=== PATIENT | male | born 1990 | race Caucasian/White ===

== ENCOUNTER 2019-03-06 14:28 | Emergency (ER) | payer BC, OTHER ==
--- NOTE | 2019-03-06 15:31 | EDPHY ---
H & P Time Seen by Provider: 03/06/19 15:09 HPI/ROS: CHIEF COMPLAINT: "I'm detoxing" HISTORY OF PRESENT ILLNESS: 28-year-old male history of frequent alcohol abuse notes binge alcohol drinking for the past 1 week, last drink of alcohol last night, drove to the ER complaining of feeling tremulous, nausea, anxiety. Denies suicidal ideation. Denies hallucination. Denies seizure. PRIMARY CARE PROVIDER: REVIEW OF SYSTEMS: 10 systems reviewed and negative with the exception of the elements mentioned in the history of present illness PAST MEDICAL & SURGICAL HISTORY: No pertinent medical or surgical history SOCIAL HISTORY: Positive for heavy daily alcohol abuse PHYSICAL EXAM (Prior to examination, patient consented to physical exam, hands were washed and my usual and customary physical exam procedures followed) 1) GENERAL: Well-developed, well-nourished, alert and oriented. Appears anxious. Tremulous. 2) HEAD: Normocephalic, atraumatic 3) HEENT: Pupils equal, round, reactive to light bilaterally. Sclera anicteric. No signs of trauma. 4) NECK: Full range of motion, no meningeal signs. 5) LUNGS: Clear auscultation bilaterally, no wheezes, no rhonchi, no retractions. 6) HEART: Regular rate and rhythm, no murmur, no heave, no gallop. 7) ABDOMEN: No guarding, no rebound, no focal tenderness, negative McBurney's, negative Lopez's, negative Rovsing's, negative peritoneal sign, 8) MUSCULOSKELETAL: Moving all extremities, no focal areas of tenderness, no obvious trauma. No peripheral edema or discoloration. 9) BACK: No CVA tenderness, no midline vertebral tenderness, no fluctuance, no step-off, no obvious trauma, no visual or palpable abnormality. 10) SKIN: No rash, no petechiae. 11) Psychiatric: Patient is oriented X 3, there is no agitation. DIFFERENTIAL DIAGNOSIS: In no particular order including but not limited to acute alcohol withdrawal, delirium tremens, alcoholic hallucinosis Smoking Status: Former smoker Constitutional: Initial Vital Signs Temperature (C) 37.1 C 03/06/19 14:41 Heart Rate 85 03/06/19 14:41 Respiratory Rate 18 03/06/19 14:41 Blood Pressure 128/90 H 03/06/19 14:41 O2 Sat (%) 97 03/06/19 14:41 O2 Delivery Mode Room Air Allergies/Adverse Reactions: No Known Allergies Allergy (Verified 03/06/19 14:41) Home Medications: Medication Instructions Recorded NK [No Known Home Meds] 08/22/14 MDM/Departure - MDM ED Course/Re-evaluation: 3:30 p.m.: Patient has a CIWA score of 3 at this time. Informed the patient that I do not feel is appropriate to provide a prescription for Librium and have him detox on his own at home by himself. [facility] He would like to speak to the business case analyst. 3:57 p.m.: life enrichment manager has had a lengthy discussion with the patient and discussed options. He is not interested in inpatient rehabilitation, is not interested in going [facility], at this time. He does request a single benzodiazepine dose which is given to him, a condition that he has agreed to leave his car here and take a taxi home. He has been given resources for outpatient and feels comfortable being discharged. He does not meet criteria for an M1 hold. Care of patient under supervision of secondary supervising physician Dr Rodríguez Gonsalez. - Depart Disposition: Home, Routine, Self-Care Clinical Impression: Alcohol withdrawal Qualifiers: Complication of substance-induced condition: uncomplicated Qualified Code(s): F10.230 - Alcohol dependence with withdrawal, uncomplicated Condition: Good Instructions: Alcohol Withdrawal (ED) Additional Instructions: Seek immediate medical attention if you develop hallucinations, if you develop seizure. Stopping alcohol suddenly can be deadly. Referrals: [facility] [Other] - 1-2 days without fail
[2019-03-06] MEDS ORDERED: LORazepam 1 MG TAB PO ONE (15:55)
[2019-03-06 16:47] VITALS: BP 155/97
--- NOTE | 2019-03-06 17:40 | ASMTCMCOM ---
CM Note CM Note Notes: This CM met with patient to discuss resources for ETOH withdrawal and recovery. 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 He is currently experiencing mild tremors and nausea but is able to eat and take fluids without issue. When asked, patient tells me that he presented to [facility] a few months ago with similar symptoms, was evaluated at [facility], but decided to not admit to detox. When discussed today he tells me that he would prefer to go home with resources but does not want to go to detox, in part because he has [facility] a R wrist fracture he sustained "a while ago". Patient reports having good support system with his parents and they are aware and supportive of his efforts to get help. Patient is working with a therapist and his PCP is Dr. Therese Montgomery at [facility] in [place] ( . Patient and I discussed options for medical detox at , , [facility], etc. as well as IP and OP recovery programs, AA meetings and [facility]. Patient is a alumni and I also encouraged him to reach out to the campus recovery group at . He is understandably hesitant to consider IP treatment at this time due to concerns about his job, but also demonstrates insight into the importance of following up with resources and a plan to address his drinking. Patient was happy to have me fax ER report to Dr. Montgomery's office which I have done with confirmation that it was received . I attempted to contact Dr. Montgomery at 1630 PM but was only able to LM with the after hours answering service. Patient was discharged home and called a Lyft to be picked up. He assures this CM that his roommates will be available if needed and he will follow up with resources provided. CM available prn for further needs Date Signed: 03/06/2019 05:39 PM Electronically Signed By:Taya Reynolds RN
--- NOTE | 2019-03-07 14:55 | ASDISCHSUM ---
Discharge Information Plan Status:Home with No Needs Medically Cleared to Leave: Discharge Date:03/06/2019 04:49 PM CM D/C Disposition:Home, Routine, Self-Care ADT D/C Disposition:Home, Routine, Self-Care Projected Discharge Date:03/06/2019 04:49 PM Transportation at D/C:Taxicab Discharge Delay Reason: Follow-Up Date:03/06/2019 04:49 PM Discharge Slot: Final Diagnosis: Placement Information Patient Contact Information Contact Name:WEI Relationship:Mother Address: City: [facility] Phone: [facility]/Zip Code:[place] Email: Financial Information Financial Class:HMO and PPO Plans Primary Plan Desc:[employer] Primary Plan Number:[id number] Secondary Plan Desc: Secondary Plan Number: Assessment Information [facility] CM Progress Note CM Note CM Note Notes: This CM met with patient to discuss resources for ETOH withdrawal and recovery. 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 He is currently experiencing mild tremors and nausea but is able to eat and take fluids without issue. When asked, patient tells me that he presented to [facility] a few months ago with similar symptoms, was evaluated at [facility], but decided to not admit to detox. When discussed today he tells me that he would prefer to go home with resources but does not want to go to detox, in part because he has a [facility] up appointment [facility] for a R wrist fracture he sustained "a while ago". Patient reports having good support system with his parents and they are aware and supportive of his efforts to get help. Patient is working with a therapist and his PCP is Dr. Therese Montgomery at [facility] in [place] ( . Patient and I discussed options for medical detox at , , [place], etc. as well as IP and OP recovery programs, AA meetings and [facility]. Patient is a alumni and I also encouraged him to reach out to the campus recovery group at . He is understandably hesitant to consider IP treatment at this time due to concerns about his job, but also demonstrates insight into the importance of following up with resources and a plan to address his drinking. Patient was happy to have me fax ER report to Dr. Montgomery's office which I have done with confirmation that it was received . I attempted to contact Dr. Montgomery at 1630 PM but was only able to LM with the after hours answering service. Patient was discharged home and called a Lyft to be picked up. He assures this CM that his roommates will be available if needed and he will follow up with resources provided. CM available prn for further needs Date Signed: 03/06/2019 05:39 PM Electronically Signed By:Taya Reynolds RN Intervention Information Intervention Type:Post Acute Communication Date of Service:03/07/2019 02:47 PM Patient Type:Emergency Room Staff Member:SHELTON Stewart, Betty Hours:0.25 Discipline:Pneumatic Tester Severity: Comment:Received a voicemail from Zulma ([phone]), Learning Officer at [facility] in [place] (pt' s PCP is Dr. Therese Montgomery); Zulma w as returning a phone call from DUTCH Bain CM yesterday. Zulma states she received t he pt's visit info and she will continue to followup with the pt. This CM returned Zulma's call and left a voicemail stating that if there is anything more they need to please reach out to ED CM .
== END 2019-03-06 16:49 | disposition home or self-care (01) ==
DX: F10.230 Alcohol dependence with withdrawal, uncomplicated (principal)

== ENCOUNTER 2019-03-08 11:04 | Emergency (ER) | payer OTHER ==
[2019-03-08] MEDS ORDERED: LORazepam 2 MG/ML INJ IVP ONE (11:19)
[2019-03-08] MEDS ORDERED: LORazepam 2 MG/ML INJ ONE (11:20)
[2019-03-08] MEDS ORDERED: NS 1,000 ML IV ONE (11:20)
--- NOTE | 2019-03-08 11:42 | EDPHY ---
H & P Stated Complaint: etoh w/d Time Seen by Provider: 03/08/19 11:07 HPI/ROS: CHIEF COMPLAINT: "I think I am withdrawing" HISTORY OF PRESENT ILLNESS: 28-year-old male was seen emergency from by myself few days ago for acute alcohol withdrawal which point he requested to detox on his own. And Outpatient prescription for benzodiazepine was declined at that time. He returns to the ER stating that he now with like inpatient alcohol detoxification. He is complaining of anxiety, nausea, tremor. Denies hallucination. Denies gait instability. REVIEW OF SYSTEMS: 10 systems reviewed and negative with the exception of the elements mentioned in the history of present illness PAST MEDICAL & SURGICAL HISTORY: No pertinent medical or surgical history SOCIAL HISTORY: Last drink of alcohol 3 days ago PHYSICAL EXAM (Prior to examination, patient consented to physical exam, hands were washed and my usual and customary physical exam procedures followed) 1) GENERAL: Well-developed, well-nourished, alert and oriented. Appears anxious tremulous 2) HEAD: Normocephalic, atraumatic 3) HEENT: Pupils equal, round, reactive to light bilaterally. Sclera anicteric. 4) NECK: Full range of motion, no meningeal signs. 5) LUNGS: Clear auscultation bilaterally, no wheezes, no rhonchi, no retractions. 6) HEART: Regular rate and rhythm, no murmur, no heave, no gallop. 7) ABDOMEN: No guarding, no rebound, no focal tenderness, negative McBurney's, negative Lopez's, negative Rovsing's, negative peritoneal sign, 8) MUSCULOSKELETAL: Moving all extremities, no focal areas of tenderness, no obvious trauma. No peripheral edema or discoloration. 9) BACK: No CVA tenderness, no midline vertebral tenderness, no fluctuance, no step-off, no obvious trauma, no visual or palpable abnormality. 10) SKIN: No rash, no petechiae. 11) Psychiatric: Patient is oriented X 3, there is no agitation. Tremulous DIFFERENTIAL DIAGNOSIS: In no particular order including but not limited to acute alcohol withdrawal, alcoholic hallucinosis, delirium tremens - Personal History Current Tetanus/Diphtheria Vaccine: Yes Current Tetanus Diphtheria and Acellular Pertussis (TDAP): Yes - Medical/Surgical History Hx Asthma: No Hx Chronic Respiratory Disease: No Hx Diabetes: No Hx Cardiac Disease: No Hx Renal Disease: No Hx Cirrhosis: No Hx Alcoholism: Yes Hx HIV/AIDS: No Hx Splenectomy or Spleen Trauma: No Other PMH: etoh/ r wrist fx - Social History Smoking Status: Former smoker Constitutional: Initial Vital Signs Temperature (C) 36.6 C 03/08/19 11:10 Heart Rate 82 03/08/19 11:10 Respiratory Rate 16 03/08/19 11:10 Blood Pressure 173/117 H 03/08/19 11:10 O2 Sat (%) 99 03/08/19 11:10 O2 Delivery Mode Room Air Allergies/Adverse Reactions: No Known Allergies Allergy (Verified 03/08/19 11:17) Home Medications: Medication Instructions Recorded NK [No Known Home Meds] 08/22/14 Medical Decision Making ED Course/Re-evaluation: I reviewed the patient's old medical records. I saw the patient the ER few days ago. He currently has ciwa of 9. Will administer IV fluids, benzodiazepine and re-evaluated. He denies suicidal or homicidal ideation. Doubt delirium tremens. 10:03 p.m.: I have re-evaluated patient with serial exams. He has been given 2 mg of IV Ativan as well as IV fluids, heart rate in the 80s, BP 140/92, he is sleeping, appears significantly improved. Doubt delirium tremens. He has completed phone intake with [facility] and he would like to go to [facility] this afternoon. He will be discharged from the ER and is planning to take a taxi to [facility]. Care of patient under supervision of [secondary] supervising physician Dr Knowles. - Data Points Medications Given: Discontinued Medications Sodium Chloride (Ns) 1,000 mls @ 0 mls/hr IV ONCE ONE PRN Reason: Wide Open Stop: 03/08/19 11:21 Last Admin: 03/08/19 11:25 Dose: 1,000 mls Lorazepam (Ativan Injection) 2 mg IVP EDNOW ONE Stop: 03/08/19 11:20 Last Admin: 03/08/19 11:25 Dose: 2 mg Departure - Departure Disposition: Home, Routine, Self-Care Clinical Impression: Alcohol withdrawal Qualifiers: Complication of substance-induced condition: uncomplicated Qualified Code(s): F10.230 - Alcohol dependence with withdrawal, uncomplicated Condition: Good Instructions: Alcohol Withdrawal (ED) Additional Instructions: Follow up with Dr. Montgomery (PCP) regarding your plans to pursue outpatient treatment and/or sober living at [facility]. Please contact admissions at [facility] TODAY and leave a message to receive a call back and more information about their program. You may also go to their web site: [email or web address] and navigate to "admission policies" where you can start a form for insurance screening and benefits. You have spoken to Bandar at [facility] and have a DETOX admission appointment at 2:00 PM today. We have provided direct transportation for you. Please follow through with medical detox at [facility] and with your plans for continued recovery Referrals: Go, directly to [facility] [Other] - As per Instructions
[2019-03-08 13:16] VITALS: BP 128/82
--- NOTE | 2019-03-08 15:19 | ASMTCMCOM ---
CM Note CM Note Notes: Patient presented to the ER today with complaints of "continued" withdrawal symptoms after drinking heavily earlier in the week. Please see CM notes from 03/06/19 and follow up note on 03/07/19. Patient is very pleasant, appears motivated to follow through with his plans to seek OP care at [facility] in [place]. He has discussed this further with his PCP, Dr. Montgomery and his mother since we met 2 days ago. I offered to call [facility] today to get more information for patient but was unable to do more than LM with admissions. Patient states that he has not been drinking since his last visit and he does not appear to be intoxicated. He tells me that he is continuing to have some nausea, has been sweaty, and is having difficulty sleeping. We discussed option of seeking voluntary detox at [facility]-pt. had been through an intake assessment there a month or so ago-versus social detox ([facility]) or going home. Patient is interested in going to [facility] if he can, "just for detox but not inpatient". This CM conatcted Bandar at and explained current situation. [facility]ar states that they have availablity this afternoon for an intake assessment and that it he could provide me with an appointment time or patient could call directly. I had patient call [facility] directly and schedule an intake assessment for 2:00 PM this afternoon. [facility] and I have arranged a Lyft for him to go to upon his discharge from the ER. Patient was escorted to his Lyft ride at 1334 with instructions to go directly to . This CM spoke with [facility] at 3:15 and confirmed that he was there and in the middle of his intake assessment. CM availble for further CM needs Date Signed: 03/08/2019 03:18 PM Electronically Signed By:Taya Reynolds RN
== END 2019-03-08 13:17 | disposition home or self-care (01) ==
DX: F10.230 Alcohol dependence with withdrawal, uncomplicated (principal); Z87.891 Personal history of nicotine dependence
CPT/HCPCS: 96374; J2060

== ENCOUNTER → 2019-04-25 | Outpatient (CLI) | payer OTHER | LOC: FIMAGING 15:41 ==